=== PATIENT | female | born 2000 | race Caucasian/White ===

== ENCOUNTER 2022-03-05 23:40 | Emergency (ER) | payer SELFPAY ==
[2022-03-06 00:27] VITALS: BP 131/77; PULSE 87; RESP 16; TEMP 36.6; O2SAT 98; BMI 26.9
== END 2022-03-06 00:38 | disposition left against medical advice (07) ==
LOC: ER 23:46
PROVIDERS: Emergency Provider Family Medicine; PCP Nurse Practitioner Family
DX: Z53.21 Procedure and treatment not carried out due to patient leaving prior to being seen by health care provider (principal); R50.9 Fever, unspecified
CPT/HCPCS: 87426